=== PATIENT | male | born 1985 | race Caucasian/White ===

== ENCOUNTER 2016-08-24 06:31 | Emergency (ER) | payer OTHER ==
--- NOTE | ~2016-08-24 | CR281 ---
[facility]. [facility] A Service [facility] RADIOLOGY TEXT RESULTS PATIENT: SHELTON GORMAN JR LOCATION: SED : 81 UNIT #: [id number] AGE: [address]: Tico Montelongo MD SEX: M ORDER DR: [id number] [place] [id number] E MR#: [id number] Acc #: [id number] NAME: HSELTON GORMAN JR : 1985 SEX: M STUDY DATE/TIME: 08/24/2016 7:47 UNIT: SED ROOM: STUDY DESCRIPTION: CR Wrist Min 3 View Lt Attending Physician: Tico Montelongo M.D. Ordering Physician: Tico Montelongo M.D. Primary Care Physician: [facility] MEDICAL IMAGING REPORT This report is preliminary unless electronic signature is present. EXAM Three-views left wrist DATE: 08/24/2016 HISTORY Left lateral wrist pain for 1 week. No known injury. Patient states "think my right wrist is broken." COMPARISON None FINDINGS No fracture or joint dislocation is seen. The joint spaces appear fairly well preserved without significant osteoarthritic change. There is approximate 2 mm negative ulnar variance. No osteolytic or osteoblastic abnormalities. IMPRESSION No acute findings in the left wrist. No significant osteoarthritic change. Dictated by... Ivette Vasquez M.D. THIS IS AN ELECTRONICALLY VERIFIED REPORT Ivette Vasquez M.D. at 08/25/2016 8:46 AM [facility]/anant TD: 08/24/2016 10:41 JOB #: [id number] [facility]. [facility] A Service [facility] RADIOLOGY TEXT RESULTS PATIENT: SHELTON GORMAN JR LOCATION: SED : 81 UNIT #: [id number] AGE: [address]: Tico Montelongo MD SEX: M ORDER DR: MEDICAL IMAGING REPORT Page 1 of 1
[~2016-08-24 06:31] MED LIST: LORTAB 7.5-5001 TAB PO; NAPROSYN500 MG PO; SILVADENE TOP; SYNTHROID PO
== END 2016-08-24 08:45 | disposition home or self-care (01) ==
LOC: SED 06:31
DX: M77.9 Enthesopathy, unspecified (principal); E03.9 Hypothyroidism, unspecified; Z88.0 Allergy status to penicillin; F17.200 Nicotine dependence, unspecified, uncomplicated; Z79.899 Other long term (current) drug therapy
CPT/HCPCS: 29125; 73110; 99283